=== PATIENT | male | born 1995 | race Caucasian/White ===

== ENCOUNTER 2019-05-18 22:54 | Inpatient (IN) | payer BC ==
--- NOTE | 2019-05-18 23:13 | ED ---
Psych HPI - General Source: patient, family, RN notes reviewed, old records reviewed Mode of arrival: ambulatory - History of Present Illness MD Complaint: suicidal ideation, feels depressed -: unknown Associated Psychiatric Symptoms: depression, suicidal ideation, racing thoughts Quality: constant Improves With: none Worsens With: none Context: significant life stressor Associated Symptoms: denies other symptoms Treatments Prior to Arrival: placed on mental health hold If Self Harm: admits thoughts of self harm <Jerson Arias - Last Filed: 05/18/19 23:59> <Scout Pettit - Last Filed: 05/19/19 03:36> - General Chief Complaint: Psychiatric Symptoms Stated Complaint: Mental Health Time Seen by Provider: 05/18/19 23:06 - History of Present Illness Initial Comments: This is a 24-year-old male here for evaluation patient is a 51 evaluation for history of depression and anxiety recently several medications here, from breakup with patient today patient becomes very suicidal. Denies drug of alcohol Abuse. Patient states he currently does want to kill himself (Jerson Arias) - Related Data Previous Rx's Medication Instructions Recorded Hydrocodone/Acetaminophen [[place] 1 each PO Q6HR PRN #30 tab 01/20/16 5-325] Ondansetron [Zofran] 4 mg PO Q8HR PRN #10 tab 01/20/16 Tamsulosin [Flomax] 0.4 mg PO DAILY #14 cap 01/20/16 Allergies Allergy/AdvReac Type Severity Reaction Status Date / Time No Known Allergies Allergy Verified 05/18/19 23:04 Review of Systems ROS Other: All systems not noted in ROS Statement are negative. <Jerson Arias - Last Filed: 05/18/19 23:59> ROS Other: All systems not noted in ROS Statement are negative. <Scout Pettit - Last Filed: 05/19/19 03:36> ROS Statement: Those systems with pertinent positive or pertinent negative responses have been documented in the HPI. Past Medical History Past Medical History: No Reported History Additional Past Medical History / Comment(s): kidney stones History of Any Multi-Drug Resistant Organisms: None Reported Past Surgical History: No Surgical Hx Reported Past Psychological History: Depression Smoking Status: Current every day smoker Past Alcohol Use History: Occasional Past Drug Use History: None Reported <Jerson Arias - Last Filed: 05/18/19 23:59> General Exam Limitations: no limitations General appearance: alert, in no apparent distress Head exam: Present: atraumatic, normocephalic, normal inspection Eye exam: Present: normal appearance, PERRL, EOMI. Absent: scleral icterus, conjunctival injection, periorbital swelling ENT exam: Present: normal exam, mucous membranes moist Neck exam: Present: normal inspection. Absent: tenderness, meningismus, lymphadenopathy Respiratory exam: Present: normal lung sounds bilaterally. Absent: respiratory distress, wheezes, rales, rhonchi, stridor Cardiovascular Exam: Present: regular rate, normal rhythm, normal heart sounds. Absent: systolic murmur, diastolic murmur, rubs, gallop, clicks GI/Abdominal exam: Present: soft, normal bowel sounds. Absent: distended, tenderness, guarding, rebound, rigid Extremities exam: Present: normal inspection, full ROM, normal capillary refill. Absent: tenderness, pedal edema, joint swelling, calf tenderness Back exam: Present: normal inspection Neurological exam: Present: alert, oriented X3, CN II-XII intact Psychiatric exam: Present: normal affect, normal mood Skin exam: Present: warm, dry, intact, normal color. Absent: rash <Jerson Arias - Last Filed: 05/18/19 23:59> Course Vital Signs 05/18/19 23:00 Temperature 97.9 F Pulse Rate 79 Respiratory 20 Rate Blood Pressure 160/79 O2 Sat by Pulse 97 Oximetry Medical Decision Making - Lab Data Result diagrams: 05/19/19 01:34 05/19/19 01:34 <Scout Pettit - Last Filed: 05/19/19 03:36> - Medical Decision Making I evaluated the patient for purposes of completing the clinical certification. Patient will be transferred for further inpatient evaluation and treatment. (Scout Pettit) - Lab Data Lab Results 05/18/19 05/18/19 05/19/19 Range/Units 23:10 23:10 01:34 WBC (3.8-10.6) k/uL RBC (4.30-5.90) m/uL Hgb (13.0-17.5) gm/dL Hct (39.0-53.0) % MCV (80.0-100.0) fL MCH (25.0-35.0) pg MCHC (31.0-37.0) g/dL RDW (11.5-15.5) % Plt Count (150-450) k/uL Neutrophils % % Lymphocytes % % Monocytes % % Eosinophils % % Basophils % % Neutrophils # (1.3-7.7) k/uL Lymphocytes # (1.0-4.8) k/uL Monocytes # (0-1.0) k/uL Eosinophils # (0-0.7) k/uL Basophils # (0-0.2) k/uL Sodium 139 (137-145) mmol/L Potassium 4.6 (3.5-5.1) mmol/L Chloride 102 (98-107) mmol/L Carbon Dioxide 25 (22-30) mmol/L Anion Gap 12 mmol/L BUN 16 (9-20) mg/dL Creatinine 0.95 (0.66-1.25) mg/dL Est GFR (CKD-EPI)AfAm >90 (>60 ml/min/1.73 sqM) Est GFR (CKD-EPI)NonAf >90 (>60 ml/min/1.73 sqM) Glucose 80 (74-99) mg/dL Calcium 10.2 (8.4-10.2) mg/dL Urine Color Yellow Urine Appearance Clear (Clear) Urine pH 6.0 (5.0-8.0) Ur Specific [place] 1.018 (1.001-1.035) Urine Protein Negative (Negative) Urine Glucose (UA) Negative (Negative) Urine Ketones Negative (Negative) Urine Blood Negative (Negative) Urine Nitrite Negative (Negative) Urine Bilirubin Negative (Negative) Urine Urobilinogen <2.0 (<2.0) mg/dL Ur Leukocyte Esterase Negative (Negative) Urine Opiates Screen Not Detected (NotDetected) Ur Oxycodone Screen Not Detected (NotDetected) Urine Methadone Screen Not Detected (NotDetected) Ur Propoxyphene Screen Not Detected (NotDetected) Ur Barbiturates Screen Not Detected (NotDetected) U Tricyclic Antidepress Not Detected (NotDetected) Ur Phencyclidine Scrn Not Detected (NotDetected) Ur Amphetamines Screen Not Detected (NotDetected) U Methamphetamines Scrn Not Detected (NotDetected) U Benzodiazepines Scrn Not Detected (NotDetected) Urine Cocaine Screen Not Detected (NotDetected) U Marijuana (THC) Screen Detected H (NotDetected) 05/19/19 Range/Units 01:34 WBC 8.6 (3.8-10.6) k/uL RBC 5.14 (4.30-5.90) m/uL Hgb 16.6 (13.0-17.5) gm/dL Hct 46.0 (39.0-53.0) % MCV 89.5 (80.0-100.0) fL MCH 32.4 (25.0-35.0) pg MCHC 36.2 (31.0-37.0) g/dL RDW 11.5 (11.5-15.5) % Plt Count 305 (150-450) k/uL Neutrophils % 61 % Lymphocytes % 29 % Monocytes % 6 % Eosinophils % 1 % Basophils % 1 % Neutrophils # 5.2 (1.3-7.7) k/uL Lymphocytes # 2.5 (1.0-4.8) k/uL Monocytes # 0.6 (0-1.0) k/uL Eosinophils # 0.1 (0-0.7) k/uL Basophils # 0.1 (0-0.2) k/uL Sodium (137-145) mmol/L Potassium (3.5-5.1) mmol/L Chloride (98-107) mmol/L Carbon Dioxide (22-30) mmol/L Anion Gap mmol/L BUN (9-20) mg/dL Creatinine (0.66-1.25) mg/dL Est GFR (CKD-EPI)AfAm (>60 ml/min/1.73 sqM) Est GFR (CKD-EPI)NonAf (>60 ml/min/1.73 sqM) Glucose (74-99) mg/dL Calcium (8.4-10.2) mg/dL Urine Color Urine Appearance (Clear) Urine pH (5.0-8.0) Ur Specific [place] (1.001-1.035) Urine Protein (Negative) Urine Glucose (UA) (Negative) Urine Ketones (Negative) Urine Blood (Negative) Urine Nitrite (Negative) Urine Bilirubin (Negative) Urine Urobilinogen (<2.0) mg/dL Ur Leukocyte Esterase (Negative) Urine Opiates Screen (NotDetected) Ur Oxycodone Screen (NotDetected) Urine Methadone Screen (NotDetected) Ur Propoxyphene Screen (NotDetected) Ur Barbiturates Screen (NotDetected) U Tricyclic Antidepress (NotDetected) Ur Phencyclidine Scrn (NotDetected) Ur Amphetamines Screen (NotDetected) U Methamphetamines Scrn (NotDetected) U Benzodiazepines Scrn (NotDetected) Urine Cocaine Screen (NotDetected) U Marijuana (THC) Screen (NotDetected) Disposition <Jerson Arias - Last Filed: 05/18/19 23:59> - Out of Hospital Transfer - Req. Specs Out of Hospital Transfer - Requested Specifics: Psychiatric Non-ICU <Scout Pettit - Last Filed: 05/19/19 03:36> Clinical Impression: Mood disorder Disposition: OTHER INSTITUTION NOT DEFINED Condition: Fair Referrals: None,Stated [Primary Care Provider] - 1-2 days
[2019-05-18 23:33] LABS: Amphetamine Screen,Urine Not Detected (NotDetected); Barbiturate Screen,Urine Not Detected (NotDetected); Benzodiazepines Screen,Urine Not Detected (NotDetected); Cocaine Screen,Urine Not Detected (NotDetected); Methadone Screen, Urine Not Detected (NotDetected); Opiate Screen,Urine Not Detected (NotDetected); Oxycodone Screen, Urine Not Detected (NotDetected); Phencyclidine Screen,Urine Not Detected (NotDetected); Tricyclic Antidepressant,Urine Not Detected (NotDetected); Urn Cannabinoid Scrn Detected (NotDetected)
[2019-05-19 01:41] LABS: Appearance,Urine Clear (Clear); Bilirubin,Urine Negative (Negative); Blood,Urine Negative (Negative); Color,Urine Yellow; Glucose,Urine (UA) Negative (Negative); Ketones,Urine Negative (Negative); Leukocyte Esterase,Urine Negative (Negative); Nitrite,Urine Negative (Negative); Protein,Urine Negative (Negative); Specific Gravity,Urine 1.018 (1.001-1.035); Urobilinogen,Urine <2.0 mg/dL (<2.0)
[2019-05-19 02:08] LABS: Basophils # (A) 0.1 k/uL (0-0.2); Basophils % (A) 1 %; Eosinophils # (A) 0.1 k/uL (0-0.7); Eosinophils % (A) 1 %; HGB 16.6 gm/dL (13.0-17.5); Lymphocytes # (A) 2.5 k/uL (1.0-4.8); Lymphocytes % (A) 29 %; MCH 32.4 pg (25.0-35.0); MCHC 36.2 g/dL (31.0-37.0); MCV 89.5 fL (80.0-100.0); Mean Platelet Volume 7.5; Monocytes # (A) 0.6 k/uL (0-1.0); Monocytes % (A) 6 %; Neutrophils # (A) 5.2 k/uL (1.3-7.7); Neutrophils % (A) 61 %; Platelet Count 305 k/uL (150-450); RBC 5.14 m/uL (4.30-5.90); RDW 11.5 % (11.5-15.5); WBC 8.6 k/uL (3.8-10.6)
[2019-05-19 02:23] LABS: African American GFR (CKD) >90 (>60 ml/min/1.73 sqM); Anion Gap 12 mmol/L; Blood Urea Nitrogen 16 mg/dL (9-20); Calcium 10.2 mg/dL (8.4-10.2); Carbon Dioxide 25 mmol/L (22-30); Chloride 102 mmol/L (98-107); Glucose 80 mg/dL (74-99); Non-African American GFR(CKD) >90 (>60 ml/min/1.73 sqM); Potassium 4.6 mmol/L (3.5-5.1); Sodium 139 mmol/L (137-145)
[2019-05-19] MEDS ORDERED: MAGNESIUM HYDROXIDE 2,400 MG/10 ML CUP PO PRN (04:45)
[2019-05-19] MEDS ORDERED: ZIPRASIDONE 20 MG VIAL IM PRN (04:45)
[2019-05-19] MEDS ORDERED: ACETAMINOPHEN TAB 325 MG TAB PO PRN (04:45)
[2019-05-19] MEDS: NICOTINE 7MG/24HR PATCH TRANSDERM SCH (09:17)
[2019-05-19 09:19] LABS: Albumin 5.1 g/dL (3.5-5.0); Bilirubin, Delta 0.2 mg/dL (0.0-0.2); Bilirubin,Unconjugated 1.4 mg/dL (0.0-1.1); Total Bilirubin 1.6 mg/dL (0.2-1.3); Total Protein 8.1 g/dL (6.3-8.2)
[2019-05-19] MEDS: lamoTRIgine 100 MG TAB PO SCH (12:27)
[2019-05-19] MEDS: LORazepam 1 MG TAB PO PRN (12:28)
[2019-05-19] MEDS: SERTRALINE 50 MG TAB PO SCH (12:31)
--- NOTE | 2019-05-19 12:46 | P.HP ---
Psychiatric H&P - . H&P Date: 05/19/19 History & Physical: Allergies Allergy/AdvReac Type Severity Reaction Status Date / Time No Known Allergies Allergy Verified 05/19/19 04:55 Vital Signs Temp 98.0 F 05/19/19 05:20 Pulse 69 05/19/19 05:20 Resp 14 05/19/19 05:20 BP 120/68 05/19/19 05:20 Pulse Ox 96 05/19/19 05:20 Intake & Output 05/18/19 05/19/19 05/19/19 18:59 06:59 18:59 Weight 81.193 kg 81.19 kg Laboratory Last Values WBC 8.6 k/uL (3.8-10.6) 05/19/19 01:34 RBC 5.14 m/uL (4.30-5.90) 05/19/19 01:34 Hgb 16.6 gm/dL (13.0-17.5) 05/19/19 01:34 Hct 46.0 % (39.0-53.0) 05/19/19 01:34 MCV 89.5 fL (80.0-100.0) 05/19/19 01:34 MCH 32.4 pg (25.0-35.0) 05/19/19 01:34 MCHC 36.2 g/dL (31.0-37.0) 05/19/19 01:34 RDW 11.5 % (11.5-15.5) 05/19/19 01:34 Plt Count 305 k/uL (150-450) 05/19/19 01:34 Neutrophils % 61 % 05/19/19 01:34 Lymphocytes % 29 % 05/19/19 01:34 Monocytes % 6 % 05/19/19 01:34 Eosinophils % 1 % 05/19/19 01:34 Basophils % 1 % 05/19/19 01:34 Neutrophils # 5.2 k/uL (1.3-7.7) 05/19/19 01:34 Lymphocytes # 2.5 k/uL (1.0-4.8) 05/19/19 01:34 Monocytes # 0.6 k/uL (0-1.0) 05/19/19 01:34 Eosinophils # 0.1 k/uL (0-0.7) 05/19/19 01:34 Basophils # 0.1 k/uL (0-0.2) 05/19/19 01:34 Sodium 139 mmol/L (137-145) 05/19/19 01:34 Potassium 4.6 mmol/L (3.5-5.1) 05/19/19 01:34 Chloride 102 mmol/L (98-107) 05/19/19 01:34 Carbon Dioxide 25 mmol/L (22-30) 05/19/19 01:34 Anion Gap 12 mmol/L 05/19/19 01:34 BUN 16 mg/dL (9-20) 05/19/19 01:34 Creatinine 0.95 mg/dL (0.66-1.25) 05/19/19 01:34 Est GFR (CKD-EPI)AfAm >90 (>60 ml/min/1.73 sqM) 05/19/19 01:34 Est GFR (CKD-EPI)NonAf >90 (>60 ml/min/1.73 sqM) 05/19/19 01:34 Glucose 80 mg/dL (74-99) 05/19/19 01:34 Calcium 10.2 mg/dL (8.4-10.2) 05/19/19 01:34 Total Bilirubin 1.6 mg/dL (0.2-1.3) H 05/19/19 08:30 Conjugated Bilirubin 0.0 mg/dL (0.0-0.3) 05/19/19 08:30 Unconjugated Bilirubin 1.4 mg/dL (0.0-1.1) H 05/19/19 08:30 Delta Bilirubin 0.2 mg/dL (0.0-0.2) 05/19/19 08:30 AST 29 U/L (17-59) 05/19/19 08:30 ALT 26 U/L (21-72) 05/19/19 08:30 Alkaline Phosphatase 73 U/L (38-126) 05/19/19 08:30 Total Protein 8.1 g/dL (6.3-8.2) 05/19/19 08:30 Albumin 5.1 g/dL (3.5-5.0) H 05/19/19 08:30 TSH 3.360 mIU/L (0.465-4.680) 05/19/19 08:30 Urine Color Yellow 05/18/19 23:10 Urine Appearance Clear (Clear) 05/18/19 23:10 Urine pH 6.0 (5.0-8.0) 05/18/19 23:10 Ur Specific [place] 1.018 (1.001-1.035) 05/18/19 23:10 Urine Protein Negative (Negative) 05/18/19 23:10 Urine Glucose (UA) Negative (Negative) 05/18/19 23:10 Urine Ketones Negative (Negative) 05/18/19 23:10 Urine Blood Negative (Negative) 05/18/19 23:10 Urine Nitrite Negative (Negative) 05/18/19 23:10 Urine Bilirubin Negative (Negative) 05/18/19 23:10 Urine Urobilinogen <2.0 mg/dL (<2.0) 05/18/19 23:10 Ur Leukocyte Esterase Negative (Negative) 05/18/19 23:10 Urine Opiates Screen Not Detected (NotDetected) 05/18/19 23:10 Ur Oxycodone Screen Not Detected (NotDetected) 05/18/19 23:10 Urine Methadone Screen Not Detected (NotDetected) 05/18/19 23:10 Ur Propoxyphene Screen Not Detected (NotDetected) 05/18/19 23:10 Ur Barbiturates Screen Not Detected (NotDetected) 05/18/19 23:10 U Tricyclic Antidepress Not Detected (NotDetected) 05/18/19 23:10 Ur Phencyclidine Scrn Not Detected (NotDetected) 05/18/19 23:10 Ur Amphetamines Screen Not Detected (NotDetected) 05/18/19 23:10 U Methamphetamines Scrn Not Detected (NotDetected) 05/18/19 23:10 U Benzodiazepines Scrn Not Detected (NotDetected) 05/18/19 23:10 Urine Cocaine Screen Not Detected (NotDetected) 05/18/19 23:10 U Marijuana (THC) Screen Detected (NotDetected) H 05/18/19 23:10 05/19/19 12:38 IDENTIFYING DATA: Patient is a 24-year-old male who currently lives with his father 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 Patient was agreeable to be seen today by physician underwriter and appeared to have fair hygiene and grooming and was directable during conversation. Patient claims that his depression and anxiety have been progressing for the past month or so and states that his girlfriend of 7 months recently broke up with him. He states that he feels that she was too worried about him and couldn't focus on herself. He claims that since the breakup he's been having more "active thoughts" about suicide however did not describe any plan or intent. He states that he feels that he is a "burden to other people" and feels guilty. He describes hopelessness and worthlessness. He also spoke about financial stress not being afford to live on his own and also having student debt as he was not able to complete his college degree. He endorsed poor sleep or concentration and poor appetite. He denied any history of manic episodes. Patient denies any suicidal or homicidal ideations intent or plan. At this time patient denies any auditory or visual hallucinations. Patient denies any flight of ideas racing thoughts and increased in goal directed behavior. Patient admits to using cannabis approximately 1 joint every other day and claims that he vapes nicotine daily. He claims that he drinks approximately 2-4 drinks a month of alcohol. PAST PSYCHIATRIC HISTORY: Patient states that he has a history of depression and anxiety. He claims that he follows up at [facility] and is involved in therapy there as well being seen weekly. He claims that he is on Vistaril Lamictal and another medication which she cannot remember. He states that he has never been admitted to a psychiatric facility and never had a suicide attempt. PMH:denies ALLERGIES: as per EMR CHEMICAL DEPENDENCY HISTORY: as per HPI FAMILY PSYCHIATRIC/SUBSTANCE USE HISTORY: Claims his sister is depressed and mother possibly has bipolar?. SOCIAL HISTORY: He states that he was born and raised in [place] and moved to [place]. He was previously in college in [place] studying computers and engineering and needed to drop out. He states that he has then tried to enroll at [employer] to complete his degree however did not able to afford it. Patient currently lives with his father in a house has no kids is single and works construction. MENTAL STATUS EXAM: General Appearance: Patient appears to be stated age is short in stature, alert, directable and attempts to cooperate. Her genital hygiene and grooming. Behavior: Patient is calmly seated without any agitated behavior. Speech: Patient's speech is fluent and nonpressured. Soft-spoken. Mood/Affect: Patient reports their mood is depressed and anxious, affect is congruent and constricted. Suicidality/Homicidality: Patient denies having any suicidal or homicidal ideation intent or plan. Perceptions: Patient denies any auditory or visual hallucinations. Though content/process: There is no evidence of any delusional thought content and thought process is linear and goal-directed. Depressive content. Memory and concentration: AOX3, grossly intact for the purposes of this session. Can spell "WORLD" backwards Judgment and insight: poor STRENGTHS/WEAKNESSES: strength is that patient is resilient woman is good education, weaknesses that patient is impulsive. INTELLECT: average IMPRESSIONS: Major depressive disorder, without psychotic features Anxiety disorder unspecified Cannabis abuse He continued dependence PLAN: -Patient is admitted under voluntary status to MHU for stabilization of psychiatric symptoms and safety. Patient signed adult voluntary form and medication consent and is placed in patient's chart. -Medications : Will start patient on his home dose of Lamictal 100 mg daily for mood stabilization/depression. We'll also start patient on Zoloft 50 mg daily for mood/anxiety. Melatonin when necessary for sleep. Vistaril when necessary for anxiety -Ativan and Geodon PRN for agitation/aggression -Patient was counselled on substance abuse and desired to cut back on use -Patient was informed of the risks, benefits and side effects of the medication and patient verbally consented to taking the medications. Patient signed med consent form and was placed in chart. -NRT - nicotine patch - on board for discharge planning 05/19/19 12:45
[2019-05-19] MEDS ORDERED: CALCIUM CARBONATE 500 MG CHEWABLE PO PRN (15:57)
--- NOTE | 2019-05-19 15:58 | P.HPMEDMHU ---
History of Present Illness H&P Date: 05/19/19 Chief Complaint: depression Patient is a 24-year-old male with a past medical history of tobacco abuse, alcohol use, and THC use who presented with complaints of depression subsequently admitted to the mental health unit. Patient seen and examined. He denies any recent cough, cold, fever, flu, nausea, vomiting, diarrhea, or constipation. He states he is in his normal state of health. He has no other complaints currently. Review of Systems Pertinent positives and negatives as discussed in HPI, a complete review of systems was performed and all other systems are negative. 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 No significant issues noted on an osteopathic structural exam other than those noted in the History and Physical/Consult. Vitals: Vital Signs Temp Pulse Pulse Resp BP BP Pulse Ox 05/19/19 05:20 98.0 F 69 14 120/68 96 05/18/19 23:00 97.9 F 79 20 160/79 97 Intake and Output 05/19/19 05/19/19 05/19/19 06:59 14:59 22:59 Other: Weight 81.193 kg 81.19 kg General: non toxic, no distress, appears at stated age, normal weight pleasant, maintains good eye contact Derm: no unusual rashes/lesions no unusual ecchymoses, warm, dry Head: atraumatic, normocephalic, symmetric Eyes: EOMI, no lid lag, anicteric sclera, pupils equal round reactive to light ENT: Nose and ears atraumatic, no thrush, no pharyngeal erythema Neck: No thyromegaly, no cervical lymphadenopathy, trachea midline, supple Mouth: no lip lesion, mucus membranes moist Cardiovascular: S1S2 reg, no murmur, positive posterior tibial pulse bilateral, no edema, capillary refill less than 2 seconds Lungs: CTA bilateral, no rhonchi, no rales , no accessory muscle use Abdominal: soft, nontender to palpation, no guarding, no appreciable organomegaly, normal bowel sounds Ext: no gross muscle atrophy, muscle strength 5 out of 5 in all 4 extremities grossly, no contractures, Neuro: CN II-XI grossly intact, light touch intact all 4 extremities, finger to nose within normal limits, Psych: Alert, oriented, appropriate affect Cranial Nerve Examination - Cranial Nerves Cranial Nerve II- Optic: Intact Cranial Nerve III- Oculomotor: Intact Cranial Nerve IV- Trochlear: Intact Cranial Nerve V- Trigeminal: Intact Cranial Nerve - Abducens: Intact Cranial Nerve VII- Facial: Intact Cranial Nerve VIII- Auditory: Intact Cranial Nerve IX- Glossopharyngeal: Intact Cranial Nerve X- Vagus: Intact Cranial Nerve XI- Accessory: Intact Cranial Nerve XII- Hypoglossal: Intact Results CBC & Chem 7: 05/19/19 01:34 05/19/19 01:34 Labs: Abnormal Lab Results - Last 24 Hours (Table) 05/18/19 05/19/19 Range/Units 23:10 08:30 Total Bilirubin 1.6 H (0.2-1.3) mg/dL Unconjugated Bilirubin 1.4 H (0.0-1.1) mg/dL Albumin 5.1 H (3.5-5.0) g/dL U Marijuana (THC) Screen Detected H (NotDetected) Thrombosis Risk Factor Assmnt - DVT/VTE Prophylaxis DVT/VTE Prophylaxis: Low risk, early ambulation encouraged - Choose All That Apply Any of the Below Risk Factors Present?: Yes Each Factor Represents 1 point: Obesity (BMI >25) Other Risk Factors: No Other congenital or acquired thrombophilia - If yes, enter type in comment: No Thrombosis Risk Factor Assessment Total Risk Factor Score: 1 Thrombosis Risk Factor Assessment Level: Low Risk Assessment and Plan Assessment: Acid reflux -Patient uses as needed antacids at home and is not on once daily -prn tums Tobacco abuse -Cessation -Nicotine replacement Depression -Your psych management Thank you for allowing us to participate in the care of this pleasant patient. Do not hesitate to contact us with questions. Someone can be reached from the [facility] hospitalist group all hours of the day at [phone] or via [employer].
[2019-05-19 19:39] LABS: Hemoglobin A1C 4.8 % (4.0-6.0)
[2019-05-19] MEDS: MELATONIN 5 MG TABLET PO SCH (20:19)
[2019-05-19] MEDS: hydrOXYzine PAMOATE 25 MG CAP PO PRN (20:19)
[2019-05-20 04:32] LABS: Cholesterol 210 mg/dL (<200); HDL Cholesterol 67 mg/dL (40-60); LDL Cholesterol,Calculated 127 mg/dL (0-99); Triglycerides 80 mg/dL (<150)
[2019-05-20 07:14] VITALS: RESP 16
[2019-05-20] MEDS: SERTRALINE 50 MG TAB PO SCH (08:57)
[2019-05-20] MEDS: lamoTRIgine 100 MG TAB PO SCH (08:57)
[2019-05-20] MEDS: NICOTINE 7MG/24HR PATCH TRANSDERM SCH (09:00)
--- NOTE | 2019-05-20 10:59 | P.PN ---
Progress Note - Text Interval history: The patient is found in the hallway he follows me to an interview room. He was admitted just recently for depression and suicidal ideation. He was continued on his previously prescribed Lamictal and Zoloft was added. He had some questions regarding the Zoloft those were addressed. He indicates that for the most part he has been attending groups although he did miss one yesterday. He indicates yesterday he used the Ativan for acute anxiety. He anticipates several family members coming up to visit this evening. Appetite stable. He reports he slept last night staff recorded he slept 7 hours. Mental status exam: The patient is a male appearing his stated age he presents with good hygiene grooming is dressed in his own clothing. Eye contact is appropriate he's pleasant cooperative and easily directed. He reports that his mood is better than the days before and he is "taking one day at a time". He presented with suicidal thoughts but states he feels safe in the hospital. He reports no homicidal ideation intent or plan. Affect is mildly constricted. He demonstrates no verbal or physical aggressiveness he demonstrates no tangential thinking loose associations or flight of ideas. He does not appear hypomanic or manic today. He describes no auditory or visual hallucinations or any specific delusions, there is no objective evidence of psychosis. Insight and judgment impaired. He is oriented to person place and date. Plan: The patient will continue on his current psychotropic medications. We discussed that the Zoloft may need to be titrated further in the future. He is encouraged to attend groups. Vital signs reviewed they're within normal limits. We will continue to monitor him for safety. He requires continued psychiatric hospitalization for evaluation and treatment.
[2019-05-20] MEDS: LORazepam 1 MG TAB PO PRN (13:36)
[2019-05-20] MEDS: hydrOXYzine PAMOATE 25 MG CAP PO PRN (21:17)
[2019-05-20] MEDS: MELATONIN 5 MG TABLET PO SCH (21:17)
[2019-05-21] MEDS: lamoTRIgine 100 MG TAB PO SCH (09:14)
[2019-05-21] MEDS: SERTRALINE 50 MG TAB PO SCH (09:14)
[2019-05-21] MEDS: NICOTINE 7MG/24HR PATCH TRANSDERM SCH (09:14)
--- NOTE | 2019-05-21 11:09 | P.PN ---
Progress Note - Text Interval history: The patient is found in the hallway he follows me to an interview room. He states that he had numerous family members with last evening and that was helpful. He states he realizes that he has several people that care for him other than just his girlfriend. He has been thinking a lot about that relationship and feels that he should move away from it but emotionally they're still a connection. He described having some difficulty sleeping last night he states he used to take 50 mg of the Vistaril we discussed titrating that as well as the melatonin. He had questions regarding Zoloft those were addressed. Staff report he slept 7 hours appetite is stable. Mental status exam: The patient is alert he is pleasant and cooperative he is dressed in his own clothing hygiene grooming are good. Eye contact is appropriate speech is fluent spontaneous nonpressured. He reports his mood is improving although he struggles with thoughts related to his relationship. Affect is constricted. He states that suicidal thoughts have resolved. He does not feel hopeless at this time. He is reporting no homicidal ideation intent or plan. He reports no auditory or visual hallucinations or any specific delusions. There is no observed evidence of psychosis. He demonstrates no tangential thinking this associations or flight of ideas. He does not appear hypomanic or manic. Insight and judgment improving. Plan: The patient will continue on his current psychotropic medication we will consider titrating the Zoloft 200 mg daily. I will titrate the Vistaril 50 twice daily as needed we'll titrate the melatonin 6 mg at bedtime. Vital signs reviewed. He is encouraged to continue participating in the milieu.
[2019-05-21] MEDS: MAG HYDROX/AL HYDROX/SIMETH 30 ML CUP PO PRN (15:59)
[2019-05-21] MEDS: MELATONIN 3 MG TABLET PO SCH (21:19)
[2019-05-21] MEDS: hydrOXYzine PAMOATE 25 MG CAP PO PRN (21:19)
[2019-05-22] MEDS: NICOTINE 7MG/24HR PATCH TRANSDERM SCH (08:39)
[2019-05-22] MEDS: lamoTRIgine 100 MG TAB PO SCH (08:40)
[2019-05-22] MEDS: SERTRALINE 50 MG TAB PO SCH (08:40)
--- NOTE | 2019-05-22 12:16 | P.PN ---
Progress Note - Text Progress Note Date: 05/22/19 Interval History: Patient was seen wandering the hallways after group and was agreeable to speak to writer editor in the office. Patient appeared to be much more cooperative today and directable during interview. Patient claims that he had many visitors over the weekend including many family members and friends and states that the interactions went well. He also states that he feels like she has a lot more support at home which is really helping him. He claims that he's been going to groups frequently and has learned different meditation techniques and also coping skills help him. Patient is more future oriented today. He spoke about his medications which have been helped improving his depression and anxiety. He states that he has been feeling improvement in his irritability as well. Patient claims that his energy is improving however has a poor appetite in the morning. He states that he had a disruptive sleep last night. At this time patient denies any suicidal or homical ideations, intent or plan. Patient denies any auditory, visual hallucinations and denies any paranoia or delusions. Patient denies any side effects from the medications and has been compliant with meds. Patient denies any rashes at this time. Mental Status Exam: General Appearance: Patient appears to be stated age is short in stature, alert, more directable today. Improving hygiene and grooming. Behavior: Patient is calmly seated without any agitated behavior. Speech: Patient's speech is fluent and nonpressured. Soft-spoken. Mood/Affect: Patient reports their mood is mildly improving, affect is congruent and constricted. Suicidality/Homicidality: Patient denies having any suicidal or homicidal ideation intent or plan. Perceptions: Patient denies any auditory or visual hallucinations. Though content/process: There is no evidence of any delusional thought content and thought process is linear and goal-directed Memory and concentration: AOX3, grossly intact for the purposes of this session. Judgment and insight: poor, improving mildly. Assessment Major depressive disorder, without psychotic features Anxiety disorder unspecified Cannabis abuse He continued dependence Plan: -Patient continues to meet criteria for inpatient psychiatric admission for symptom stabilization and safety. Patient has signed adult voluntary form and medication consent and was placed in patient's chart. -Medications: Will continue with Lamictal 100 mg daily for mood stabilization/depression. We'll also continue with Zoloft 50mg daily for mood/anxiety. Continue with melatonin for sleep and Vistaril when necessary for anxiety. -When necessary Ativan and Geodon for agitation/aggression. -NRT - nicotine patch -SW on board for discharge planning. Likely discharge tomorrow back home. We'll ask renal social worker to reach out to parents for any concerns and to schedule family meeting for tomorrow.
[2019-05-22] MEDS: MAG HYDROX/AL HYDROX/SIMETH 30 ML CUP PO PRN (17:05)
[2019-05-22] MEDS: MELATONIN 3 MG TABLET PO SCH (21:29)
[2019-05-22] MEDS: hydrOXYzine PAMOATE 25 MG CAP PO PRN (21:30)
[2019-05-23 00:36] VITALS: BP 167/93; PULSE 72; TEMP 98.3
[2019-05-23] MEDS: lamoTRIgine 100 MG TAB PO SCH (08:56)
[2019-05-23] MEDS: NICOTINE 7MG/24HR PATCH TRANSDERM SCH (08:56)
[2019-05-23] MEDS: SERTRALINE 50 MG TAB PO SCH (08:56)
--- NOTE | 2019-05-23 11:37 | P.DS ---
Providers Date of admission: 05/19/19 04:38 Expected date of discharge: 05/23/19 Attending physician: Apollo Bernal MD Consults: 05/19/19 04:45 Consult Physician Routine Consulting Provider: Julissa De Leon Consult Reason/Comments: For H & P for Medical Follow Up Do you want consulting provider notified?: Yes Primary care physician: Stated None - Discharge Diagnosis(es) (1) Major depressive disorder without psychotic features Current Visit: Yes Status: Acute Priority: High (2) Anxiety disorder Current Visit: Yes Status: Acute Priority: Medium (3) Cannabis abuse Current Visit: Yes Status: Acute Priority: Medium (4) Nicotine dependence Current Visit: Yes Status: Acute Priority: Low Hospital Course: Admission HPI: Patient is a 24-year-old male who currently lives with his father 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 Patient presented to the hospital yesterday with complaints of depression and anxiety and racing thoughts along with suicidal ideations. Patient was agreeable to be seen today by caption writer and appeared to have fair hygiene and grooming and was directable during conversation. Patient claims that his depression and anxiety have been progressing for the past month or so and states that his girlfriend of 7 months recently broke up with him. He states that he feels that she was too worried about him and couldn't focus on herself. He claims that since the breakup he's been having more "active thoughts" about suicide however did not describe any plan or intent. He states that he feels that he is a "burden to other people" and feels guilty. He describes hopelessness and worthlessness. He also spoke about financial stress not being afford to live on his own and also having student debt as he was not able to complete his college degree. He endorsed poor sleep or concentration and poor appetite. He denied any history of manic episodes. Patient denies any suicidal or homicidal ideations intent or plan. At this time patient denies any auditory or visual hallucinations. Patient denies any flight of ideas racing thoughts and increased in goal directed behavior. Patient admits to using cannabis approximately 1 joint every other day and claims that he vapes nicotine daily. He claims that he drinks approximately 2-4 drinks a month of alcohol. Hospital course: Upon admission to the unit patient was initially depressed and anxious having suicidal ideations. Patient was however directable and agreeable to commence treatment. Patient got along well with other patients on the unit and followed unit protocol. Patient was compliant with the medications and denied any side effects throughout hospital course. Patient was started on Zoloft 50 mg daily for mood/anxiety, Lamictal which was titrated up to 100 mg daily for mood stabilization/depression. Patient was also started on melatonin for sleep and Vistaril when needed for anxiety. Patient spoke of his stressors and engaged in therapy both group and individual. Patient was also seen by medical team for history and physical exam. Throughout the course of the hospitalization patient gradually improved with regards to mood, anxiety, sleep and became future oriented with improved insight and judgment. On the day of discharge patient denied any suicidal or homicidal ideations intent or plan denied any auditory or visual hallucinations. Patient endorsed wanting to live for his health and his future. The patient denied any access to guns or weapons. Patient denied any paranoia and did not endorse any delusions. Patient does have a significant h istory of substance abuse and was counseled on abstaining from all substances including alcohol and marijuana. Patient declined substance use treatment at this time and wanted to cut back on his own. Patient was also counseled on the medications and need for regular compliance and was encouraged to follow-up with their outpatient appointment for mental health and also for primary care. Prior to discharge a family meeting will be arranged by social media content specialist to answer any questions and ensure safety upon discharge. Mental status exam: General Appearance: Patient appears to be stated age is alert, pleasant, and cooperative. Patient is in no acute distress and has fair hygiene and grooming Behavior: Patient is calmly seated without any agitated behavior. Speech: Patient's speech is fluent and nonpressured. Mood/Affect: Patient reports their mood is "better", affect is congruent and euthymic. Suicidality/Homicidality: Patient denies having any suicidal or homicidal ideation intent or plan. Perceptions: Patient denies any auditory or visual hallucinations. Though content/process: There is no evidence of any delusional thought content and thought process is linear and goal-directed. Memory and concentration: AOX3, grossly intact for the purposes of this session. Can spell "WORLD" backwards correctly. Judgment and insight: fair, improved Impression: Major depressive disorder, without psychotic features Anxiety disorder unspecified Cannabis abuse Nicotine dependence Plan: -Continue with discharge today as patient has improved and stabilized psychiatrically and is not currently an imminent threat to himself and/or others. -Continue medications: Continue with Lamictal 100 mg daily for mood stabilization/depression, Zoloft 50 mg daily for mood/anxiety, melatonin for sl eep and Vistaril when near needed for anxiety. -Patient was counseled on the need for medication compliance and appropriate follow-up at mental health and also primary care for medical issues. Patient verbalized understanding and agreed. -Social work to arrange for and conduct family meeting to ensure safety upon discharge and answer any questions/concerns. Social work also to arrange for patients follow up appointments [facility] for psychiatric care along with follow up with primary care provider. -Patient counseled on abstaining from recreational drugs and marijuana and alcohol. Was informed/educated on the adverse effects on their physical and mental health. Patient verbally agreed and understood -Patient was instructed to return to the hospital or seek immediate medical care if their psychiatric or medical symptoms do worsen or reoccur. Allergies Allergy/AdvReac Type Severity Reaction Status Date / Time No Known Allergies Allergy Verified 05/19/19 04:55 Laboratory Results WBC 8.6 k/uL (3.8-10.6) 05/19/19 01:34 RBC 5.14 m/uL (4.30-5.90) 05/19/19 01:34 Hgb 16.6 gm/dL (13.0-17.5) 05/19/19 01:34 Hct 46.0 % (39.0-53.0) 05/19/19 01:34 MCV 89.5 fL (80.0-100.0) 05/19/19 01:34 MCH 32.4 pg (25.0-35.0) 05/19/19 01:34 MCHC 36.2 g/dL (31.0-37.0) 05/19/19 01:34 RDW 11.5 % (11.5-15.5) 05/19/19 01:34 Plt Count 305 k/uL (150-450) 05/19/19 01:34 Neutrophils % 61 % 05/19/19 01:34 Lymphocytes % 29 % 05/19/19 01:34 Monocytes % 6 % 05/19/19 01:34 Eosinophils % 1 % 05/19/19 01:34 Basophils % 1 % 05/19/19 01:34 Neutrophils # 5.2 k/uL (1.3-7.7) 05/19/19 01:34 Lymphocytes # 2.5 k/uL (1.0-4.8) 05/19/19 01:34 Monocytes # 0.6 k/uL (0-1.0) 05/19/19 01:34 Eosinophils # 0.1 k/uL (0-0.7) 05/19/19 01:34 Basophils # 0.1 k/uL (0-0.2) 05/19/19 01:34 Sodium 139 mmol/L (137-145) 05/19/19 01:34 Potassium 4.6 mmol/L (3.5-5.1) 05/19/19 01:34 Chloride 102 mmol/L (98-107) 05/19/19 01:34 Carbon Dioxide 25 mmol/L (22-30) 05/19/19 01:34 Anion Gap 12 mmol/L 05/19/19 01:34 BUN 16 mg/dL (9-20) 05/19/19 01:34 Creatinine 0.95 mg/dL (0.66-1.25) 05/19/19 01:34 Est GFR (CKD-EPI)AfAm >90 (>60 ml/min/1.73 sqM) 05/19/19 01:34 Est GFR (CKD-EPI)NonAf >90 (>60 ml/min/1.73 sqM) 05/19/19 01:34 Glucose 80 mg/dL (74-99) 05/19/19 01:[address] Glu mg/dL 91 05/19/19 08:30 Hemoglobin A1c 4.8 % (4.0-6.0) 05/19/19 08:30 Calcium 10.2 mg/dL (8.4-10.2) 05/19/19 01:34 Total Bilirubin 1.6 mg/dL (0.2-1.3) H 05/19/19 08:30 Conjugated Bilirubin 0.0 mg/dL (0.0-0.3) 05/19/19 08:30 Unconjugated Bilirubin 1.4 mg/dL (0.0-1.1) H 05/19/19 08:30 Delta Bilirubin 0.2 mg/dL (0.0-0.2) 05/19/19 08:30 AST 29 U/L (17-59) 05/19/19 08:30 ALT 26 U/L (21-72) 05/19/19 08:30 Alkaline Phosphatase 73 U/L (38-126) 05/19/19 08:30 Total Protein 8.1 g/dL (6.3-8.2) 05/19/19 08:30 Albumin 5.1 g/dL (3.5-5.0) H 05/19/19 08:30 Triglycerides 80 mg/dL (<150) 05/19/19 01:34 Cholesterol 210 mg/dL (<200) H 05/19/19 01:34 LDL Cholesterol, Calc 127 mg/dL (0-99) H 05/19/19 01:34 HDL Cholesterol 67 mg/dL (40-60) H 05/19/19 01:34 TSH 3.360 mIU/L (0.465-4.680) 05/19/19 08:30 Urine Color Yellow 05/18/19 23:10 Urine Appearance Clear (Clear) 05/18/19 23:10 Urine pH 6.0 (5.0-8.0) 05/18/19 23:10 Ur Specific Ellery 1.018 (1.001-1.035) 05/18/19 23:10 Urine Protein Negative (Negative) 05/18/19 23:10 Urine Glucose (UA) Negative (Negative) 05/18/19 23:10 Urine Ketones Negative (Negative) 05/18/19 23:10 Urine Blood Negative (Negative) 05/18/19 23:10 Urine Nitrite Negative (Negative) 05/18/19 23:10 Urine Bilirubin Negative (Negative) 05/18/19 23:10 Urine Urobilinogen <2.0 mg/dL (<2.0) 05/18/19 23:10 Ur Leukocyte Esterase Negative (Negative) 05/18/19 23:10 Urine Opiates Screen Not Detected (NotDetected) 05/18/19 23:10 Ur Oxycodone Screen Not Detected (NotDetected) 05/18/19 23:10 Urine Methadone Screen Not Detected (NotDetected) 05/18/19 23:10 Ur Propoxyphene Screen Not Detected (NotDetected) 05/18/19 23:10 Ur Barbiturates Screen Not Detected (NotDetected) 05/18/19 23:10 U Tricyclic Antidepress Not Detected (NotDetected) 05/18/19 23:10 Ur Phencyclidine Scrn Not Detected (NotDetected) 05/18/19 23:10 Ur Amphetamines Screen Not Detected (NotDetected) 05/18/19 23:10 U Methamphetamines Scrn Not Detected (NotDetected) 05/18/19 23:10 U Benzodiazepines Scrn Not Detected (NotDetected) 05/18/19 23:10 Urine Cocaine Screen Not Detected (NotDetected) 05/18/19 23:10 U Marijuana (THC) Screen Detected (NotDetected) H 05/18/19 23:10 Vital Signs Temp 98.3 F 05/23/19 00:35 Pulse 72 05/23/19 00:35 Resp 16 05/23/19 00:35 BP 167/93 05/23/19 00:35 Pulse Ox 97 05/23/19 00:35 Patient Condition at Discharge: Stable Plan - Discharge Summary New Discharge Prescriptions: New Nicotine 7Mg/24Hr Patch [Habitrol] 1 patch TRANSDERM DAILY #14 patch lamoTRIgine [LaMICtal] 100 mg PO DAILY #28 tab Melatonin 6 mg PO HS 28 Days tablet hydrOXYzine PAMOATE [Vistaril] 50 mg PO BID PRN 28 Days cap PRN Reason: Anxiety Sertraline [Zoloft] 50 mg PO DAILY #28 tab Discontinued lamoTRIgine [LaMICtal] 100 mg PO DAILY hydrOXYzine PAMOATE [Vistaril] Discharge Medication List Melatonin 6 mg PO HS 28 Days tablet 05/23/19 [Rx] Nicotine 7Mg/24Hr Patch [Habitrol] 1 patch TRANSDERM DAILY #14 patch 05/23/19 [Rx] Sertraline [Zoloft] 50 mg PO DAILY #28 tab 05/23/19 [Rx] hydrOXYzine PAMOATE [Vistaril] 50 mg PO BID PRN 28 Days cap 05/23/19 [Rx] lamoTRIgine [LaMICtal] 100 mg PO DAILY #28 tab 05/23/19 [Rx] Follow up Appointment(s)/Referral(s): [facility] [Outside] - 05/30/19 6:00 pm (May 30 at 6pm [place] and Jun 12 at 9:15 [facility] [address] Rebeca hammond) [facility] Patient Instructions/Handouts: Mood Disorders (DC), Depression (DC) Activity/Diet/Wound Care/Special Instructions: Activity and diet as tolerated. Avoid the use of street drugs and alcohol. Take all medications as prescribed. When you are in need of refills on your medications please contact your medical provider and/or outpatient psychiatrist to have this done. Please go to scheduled outpatient appointment for aftercare treatment. If symptoms return or become worse, call the crisis line at and/or go to the nearest emergency room for evaluation. Discharge Disposition: HOME SELF-CARE
== END 2019-05-23 14:30 | disposition home or self-care (01) | DRG 881 ==
LOC: EC 22:54 → 3MHU 05-19 04:38
PROVIDERS: ADMIT Psychiatry & Neurology Psychiatry; ATTEND Psychiatry & Neurology Psychiatry
DX: F32.9 Major depressive disorder, single episode, unspecified (principal); R45.851 Suicidal ideations; F41.9 Anxiety disorder, unspecified; F12.10 Cannabis abuse, uncomplicated; F17.200 Nicotine dependence, unspecified, uncomplicated; Z87.442 Personal history of urinary calculi
CPT/HCPCS: 36415; 80048; 80061; 80076; 80306; 81003; 82075; 83036; 84443; 85025; 99285

== ENCOUNTER 2022-09-12 13:52 | Emergency (ER) | payer BC, OTHER ==
[2022-09-12 14:03] VITALS: BP 140/100; PULSE 70; RESP 16; TEMP 99.1
[2022-09-12 15:23] LABS: Amphetamine Screen,Urine Detected (NotDetected); Barbiturate Screen,Urine Not Detected (NotDetected); Benzodiazepines Screen,Urine Not Detected (NotDetected); Cocaine Screen,Urine Not Detected (NotDetected); Methadone Screen, Urine Not Detected (NotDetected); Opiate Screen,Urine Not Detected (NotDetected); Oxycodone Screen, Urine Not Detected (NotDetected); Phencyclidine Screen,Urine Not Detected (NotDetected); Tricyclic Antidepressant,Urine Not Detected (NotDetected); Urn Cannabinoid Scrn Detected (NotDetected)
--- NOTE | 2022-09-12 16:03 | ED ---
Psych HPI - General Source: patient, police, RN notes reviewed Mode of arrival: ambulatory Limitations: no limitations <Alfonso Mccormack - Last Filed: 09/12/22 16:02> <Lola Jules - Last Filed: 09/13/22 00:47> - General Chief Complaint: Psychiatric Symptoms Stated Complaint: Petition Time Seen by Provider: 09/12/22 14:05 - History of Present Illness Initial Comments: 27-year-old male presents emergency department for psychiatric evaluation. Patient brought in with police and petition secondary to suicidal threats. Patient states it argument with his significant other in which he initially left the house states that his significant other left the house with her kids. Patient states she does not feel suicidal at this moment states she was very upset. Patient does admit to alcohol use today. He does admit to marijuana use. Denies any physical complaints. (Alfonso Mccormack) - Related Data Previous Rx's Medication Instructions Recorded Melatonin 6 mg PO HS 28 Days tablet 05/23/19 Nicotine 7Mg/24Hr Patch [Habitrol] 1 patch TRANSDERM DAILY #14 patch 05/23/19 Sertraline [Zoloft] 50 mg PO DAILY #28 tab 05/23/19 hydrOXYzine pamoate [Vistaril] 50 mg PO BID PRN 28 Days cap 05/23/19 lamoTRIgine [LaMICtal] 100 mg PO DAILY #28 tab 05/23/19 Allergies Allergy/AdvReac Type Severity Reaction Status Date / Time No Known Allergies Allergy Verified 05/19/19 04:55 Review of Systems ROS Other: All systems not noted in ROS Statement are negative. <Alfonso Mccormack - Last Filed: 09/12/22 16:02> ROS Other: All systems not noted in ROS Statement are negative. <Lola Jules - Last Filed: 09/13/22 00:47> ROS Statement: Those systems with pertinent positive or pertinent negative responses have been documented in the HPI. Past Medical History Past Medical History: GERD/Reflux Additional Past Medical History / Comment(s): kidney stones History of Any Multi-Drug Resistant Organisms: None Reported Past Surgical History: No Surgical Hx Reported Past Psychological History: Depression Past Alcohol Use History: Occasional Past Drug Use History: Marijuana - Past Family History Father Family Medical History: Hypertension Mother Family Medical History: Hypertension <Dedoe,Alfonso M - Last Filed: 09/12/22 16:02> General Exam Limitations: no limitations General appearance: alert, in no apparent distress Head exam: Present: atraumatic, normocephalic, normal inspection Eye exam: Present: normal appearance, PERRL, EOMI. Absent: scleral icterus, conjunctival injection, periorbital swelling ENT exam: Present: normal exam, normal oropharynx, mucous membranes moist Neck exam: Present: normal inspection. Absent: tenderness, meningismus, lymphadenopathy Respiratory exam: Present: normal lung sounds bilaterally. Absent: respiratory distress, wheezes, rales, rhonchi, stridor Cardiovascular Exam: Present: regular rate, normal rhythm, normal heart sounds. Absent: systolic murmur, diastolic murmur, rubs, gallop, clicks Neurological exam: Present: alert Psychiatric exam: Present: depressed <Alfonso Mccormack M - Last Filed: 09/12/22 16:02> Course Vital Signs 09/12/22 14:00 Temperature 99.1 F Pulse Rate 70 Respiratory 16 Rate Blood Pressure 140/100 O2 Sat by Pulse 95 Oximetry Medical Decision Making - Lab Data Lab Results 09/12/22 Range/Units 15:07 Urine Opiates Screen Not Detected (NotDetected) Ur Oxycodone Screen Not Detected (NotDetected) Urine Methadone Screen Not Detected (NotDetected) Ur Propoxyphene Screen Not Detected (NotDetected) Ur Barbiturates Screen Not Detected (NotDetected) U Tricyclic Antidepress Not Detected (NotDetected) Ur Phencyclidine Scrn Not Detected (NotDetected) Ur Amphetamines Screen Detected H (NotDetected) U Methamphetamines Scrn Not Detected (NotDetected) U Benzodiazepines Scrn Not Detected (NotDetected) Urine Cocaine Screen Not Detected (NotDetected) U Marijuana (THC) Screen Detected H (NotDetected) Disposition <CarolAlfonso del castillo - Last Filed: 09/12/22 16:02> Is patient prescribed a controlled substance at d/c from ED?: No Time of Disposition: 00:47 <Lola Jules - Last Filed: 09/13/22 00:47> Clinical Impression: Major depressive disorder without psychotic features Disposition: HOME SELF-CARE Condition: Stable Instructions (If sedation given, give patient instructions): Depression (ED) Referrals: None,Stated [Primary Care Provider] - 1-2 days
[2022-09-12] MEDS ORDERED: NICOTINE 21MG/24HR PATCH TRANSDERM STA (17:39)
== END 2022-09-13 01:01 | disposition home or self-care (01) ==
LOC: EC 13:52
DX: F32.9 Major depressive disorder, single episode, unspecified (principal); F12.90 Cannabis use, unspecified, uncomplicated; Z87.442 Personal history of urinary calculi
CPT/HCPCS: 82075; 80306; 99285; S4990